=== PATIENT | female | born 1980 | race Caucasian/White ===

== ENCOUNTER → 2019-04-04 11:58 | Outpatient (CLI) | payer OTHER, SELFPAY ==
--- NOTE | 2019-04-04 | DI.MRI.S_ITS ---
PROCEDURE: MR LUMBAR SPINE WO CON INDICATIONS: Radiculopathy, lumbosacral region TECHNIQUE: Noncontrast sagittal T1 spin echo and T2 fast echo, sagittal STIR, axial T1 and T2 fast spin echo through the lumbar spine. In cases with scoliosis, additional coronal T2 fast spin echo may be performed. COMPARISON: None. FINDINGS: Image quality: Excellent. Alignment and Curvature: There is normal bony alignment. Bone Marrow: Marrow is of normal overall signal. No acute vertebral body compression fractures. Spinal Cord: Conus medullaris terminates at the T12-L1 level. Visualized cord demonstrates normal signal and size. Paraspinous Soft Tissues: No paravertebral masses. Presumed right-sided dominant follicle present in the right adnexal region L1-L2: Normal appearance. No high-grade central canal stenosis. L2-L3: Normal appearance. L3-L4: Mild central canal narrowing or lateral recess appear patent. Moderate bilateral foraminal stenosis with nerve root compression. L4-L5: Mild central canal narrowing. Partial effacement of both lateral recesses with bilaterally symmetric appearance. Severe right foraminal stenosis with nerve root compression. Moderate left foraminal stenosis with nerve root compression L5-S1: No high-grade central canal narrowing. Partial effacement of both lateral recesses with bilaterally symmetric appearance. Moderate to severe bilateral foraminal stenoses with nerve root compression IMPRESSION: Lower lumbar spondylosis and facet arthropathy, with diffuse bilateral foraminal stenoses as detailed above by spinal level. Bilateral subarticular narrowing at L4-L5 and L5-S1. Mild central canal narrowing at L3-4, L4-L5. Dictated by: Denver Zhang M.D. on 04/04/2019 at 16:37 Approved by: Denver Zhang M.D. on 04/04/2019 at 16:46
--- NOTE | 2019-04-04 | DI.RAD.S_ITS ---
PROCEDURE: XR EYE FOREIGN BODY RT INDICATIONS: MRI SCREENING TECHNIQUE: A single view of the orbits was acquired. COMPARISON: None. FINDINGS: Soft tissues: No metallic foreign bodies are visualized around the orbits. Bones: Bony structures appear unremarkable. Visualized sinuses appear clear. IMPRESSION: No metallic foreign bodies identified. Dictated by: Denver Zhang M.D. on 04/04/2019 at 12:30 Approved by: Denver Zhang M.D. on 04/04/2019 at 12:32
== END ==
PROVIDERS: PCP Family Medicine; Referring Provider Family Medicine; Visit Provider Family Medicine
DX: M47.26 Other spondylosis with radiculopathy, lumbar region (principal); M48.061 Spinal stenosis, lumbar region without neurogenic claudication; M48.07 Spinal stenosis, lumbosacral region
CPT/HCPCS: 70030; 72148